=== PATIENT | male | born 1975 | race Caucasian/White ===

== ENCOUNTER 2018-06-23 08:49 | Emergency (ER) | payer OTHER ==
[~2018-06-23] VITALS: Ht 167.6 cm; Wt 90.7 kg
[2018-06-23] MEDS ORDERED: LOSARTAN POTAS100 MG PO (08:57)
[2018-06-23] MEDS ORDERED: METOPROLOL SUCC25 MG PO (08:58)
[2018-06-23] MEDS ORDERED: IBUPROFEN800 MG PO (11:26)
[2018-06-23] MEDS ORDERED: ORPHENADRINE C100 MG PO (11:26)
== END 2018-06-23 21:48 | disposition home or self-care (01) ==
LOC: ER 08:49
DX: S00.83XA Contusion of other part of head, initial encounter (principal); W18.09XA Striking against other object with subsequent fall, initial encounter; Y93.89 Activity, other specified; Y92.098 Other place in other non-institutional residence as the place of occurrence of the external cause; Y99.8 Other external cause status

== ENCOUNTER 2018-12-23 11:26 | Emergency (ER) | payer OTHER ==
[~2018-12-23] VITALS: Ht 167.6 cm; Wt 86.2 kg
[~2018-12-23 11:26] MED LIST: IBUPROFEN800 MG PO; LOSARTAN POTAS100 MG PO; METOPROLOL SUCC25 MG PO; ORPHENADRINE C100 MG PO
[2018-12-23] MEDS ORDERED: GENTAK5 ML OP (11:49)
== END 2018-12-23 12:18 | disposition home or self-care (01) ==
LOC: ER 11:26
DX: H10.12 Acute atopic conjunctivitis, left eye (principal)

== ENCOUNTER 2019-12-14 11:25 | Emergency (ER) | payer OTHER ==
[~2019-12-14] VITALS: Ht 167.6 cm; Wt 81.6 kg
[~2019-12-14 11:25] MED LIST changes: +GENTAK5 ML OP
== END 2019-12-14 14:54 | disposition home or self-care (01) ==
LOC: ER 11:25
DX: B34.9 Viral infection, unspecified (principal); Z03.818 Encounter for observation for suspected exposure to other biological agents ruled out; R05 Cough